=== PATIENT | female | born 1945 | race Caucasian/White ===

== ENCOUNTER 2017-08-24 05:07 | Outpatient (CLI) | payer MEDICARE, BC ==
[~2017-08-24 05:07] MED LIST: ALBU6.7H INH; GLIM4TAB79 PO; HYDR12.522 PO; METF500T PO; PIOG45TA19 PO; QUIN10TA PO; ROSU10TA PO
== END 2017-08-24 23:59 | disposition home or self-care (01) ==
LOC: DIABETIC 05:07
PROVIDERS: ATTEND Family Medicine
DX: E11.9 Type 2 diabetes mellitus without complications (principal); I10 Essential (primary) hypertension; E66.9 Obesity, unspecified
CPT/HCPCS: G0108

== ENCOUNTER 2017-11-16 02:22 | Outpatient (CLI) | payer MEDICARE, BC | END 2017-11-16 23:59 | disposition home or self-care (01) | LOC: DIABETIC 02:22 | PROVIDERS: ATTEND Family Medicine | DX: E11.9 Type 2 diabetes mellitus without complications (principal); I10 Essential (primary) hypertension; E66.9 Obesity, unspecified; Z79.82 Long term (current) use of aspirin; Z79.899 Other long term (current) drug therapy; Z85.41 Personal history of malignant neoplasm of cervix uteri | CPT/HCPCS: G0108 ==

== ENCOUNTER 2018-02-17 01:21 | Outpatient (CLI) | payer MEDICARE, BC | END 2018-02-17 23:59 | disposition home or self-care (01) | LOC: DIABETIC 01:21 | PROVIDERS: ATTEND Family Medicine | DX: E11.9 Type 2 diabetes mellitus without complications (principal); I10 Essential (primary) hypertension; E66.9 Obesity, unspecified; Z79.82 Long term (current) use of aspirin; Z79.84 Long term (current) use of oral hypoglycemic drugs | CPT/HCPCS: G0108 ==

== ENCOUNTER 2018-05-19 00:42 | Outpatient (CLI) | payer MEDICARE, BC | END 2018-05-19 23:59 | disposition home or self-care (01) | LOC: DIABETIC 00:42 | PROVIDERS: ATTEND Family Medicine | DX: E11.9 Type 2 diabetes mellitus without complications (principal); I10 Essential (primary) hypertension; E66.9 Obesity, unspecified; Z79.82 Long term (current) use of aspirin; Z79.84 Long term (current) use of oral hypoglycemic drugs | CPT/HCPCS: G0108 ==

== ENCOUNTER 2018-08-18 00:29 | Outpatient (CLI) | payer MEDICARE, BC ==
[~2018-08-18 00:29] MED LIST changes: -ROSU10TA PO; +ROSU10TA2 PO
== END 2018-08-18 23:59 | disposition home or self-care (01) ==
LOC: DIABETIC 00:29
PROVIDERS: ATTEND Family Medicine
DX: E11.9 Type 2 diabetes mellitus without complications (principal); I10 Essential (primary) hypertension; E66.9 Obesity, unspecified; Z79.84 Long term (current) use of oral hypoglycemic drugs; Z79.899 Other long term (current) drug therapy
CPT/HCPCS: G0108

== ENCOUNTER 2018-11-29 02:01 | Outpatient (CLI) | payer MEDICARE, BC ==
[~2018-11-29 02:01] MED LIST changes: -ALBU6.7H INH; +ALBU6.7H9 INH; +GLIM4TAB4 PO; -GLIM4TAB79 PO
== END 2018-11-29 23:59 | disposition home or self-care (01) ==
LOC: DIABETIC 02:01
PROVIDERS: ATTEND Family Medicine
DX: E11.9 Type 2 diabetes mellitus without complications (principal); I10 Essential (primary) hypertension; E66.9 Obesity, unspecified; Z79.84 Long term (current) use of oral hypoglycemic drugs; Z79.82 Long term (current) use of aspirin; Z79.899 Other long term (current) drug therapy
CPT/HCPCS: G0108

== ENCOUNTER 2019-03-02 01:54 | Outpatient (CLI) | payer MEDICARE, BC | END 2019-03-02 23:59 | disposition home or self-care (01) | LOC: DIABETIC 01:54 | PROVIDERS: ATTEND Family Medicine | DX: E11.9 Type 2 diabetes mellitus without complications (principal); I10 Essential (primary) hypertension; E66.9 Obesity, unspecified; Z79.84 Long term (current) use of oral hypoglycemic drugs; Z79.82 Long term (current) use of aspirin; Z88.0 Allergy status to penicillin | CPT/HCPCS: G0108 ==